=== PATIENT | female | born 1985 | race Caucasian/White ===

== ENCOUNTER 2017-12-06 19:44 | Emergency (ER) | payer OTHER ==
[~2017-12-06] VITALS: Ht 152.4 cm; Wt 49.4 kg
[2017-12-06] MEDS ORDERED: CELEBREX200MG PO (23:14)
[2017-12-06] MEDS ORDERED: PERCOCET 5-3251 EACH PO (23:14)
== END 2017-12-06 23:57 | disposition home or self-care (01) ==
LOC: ER 19:44
DX: S82.852A Displaced trimalleolar fracture of left lower leg, initial encounter for closed fracture (principal); X50.0XXA Overexertion from strenuous movement or load, initial encounter; Y93.89 Activity, other specified; Y92.89 Other specified places as the place of occurrence of the external cause; Y99.8 Other external cause status